=== PATIENT | female | born 1950 | race Caucasian/White ===

== ENCOUNTER 2020-09-30 05:47 | Inpatient (IN) ==
[2020-09-30] MEDS ORDERED: LACTATED RINGERS 1,000 ML IV SCH (06:00)
[2020-09-30] MEDS ORDERED: GABAPENTIN 400 MG CAPSULE PO ONE (06:22)
[2020-09-30] MEDS ORDERED: ACETAMINOPHEN 500 MG TABLET PO ONE (06:22)
[2020-09-30] MEDS ORDERED: FAMOTIDINE 20 MG TABLET PO ONE (06:22)
[2020-09-30] MEDS ORDERED: DIAZEPAM 5 MG TABLET PO ONE (06:22)
[2020-09-30] MEDS ORDERED: TISSUE ADHESIVE 1 EACH APPLICATOR TOP ONE (06:25)
[2020-09-30] MEDS ORDERED: INDOCYANINE GREEN 25 MG VIAL IV ONE (06:25)
[2020-09-30] MEDS ORDERED: cefOXitin 1,000 MG in SYRINGE 1 EACH IV ONE (06:30)
[2020-09-30] MEDS ORDERED: ALVIMOPAN 12 MG CAPSULE PO ONE (06:30)
[2020-09-30] MEDS ORDERED: MIDAZOLAM 2 MG/2 ML VIAL ONE (06:42)
[2020-09-30] MEDS ORDERED: fentaNYL 100 MCG/2 ML VIAL ONE (06:42)
[2020-09-30] MEDS ORDERED: LIDOCAINE 2% 5 ML VIAL ONE (06:43)
[2020-09-30] MEDS ORDERED: ROCURONIUM 50 MG/5 ML VIAL IV ONE (06:43)
[2020-09-30] MEDS ORDERED: propofoL 200 MG/20 ML VIAL IV ONE (06:43)
[2020-09-30] MEDS ORDERED: LIDOCAINE 1% 5 ML VIAL ONE (06:49)
[2020-09-30] MEDS ORDERED: DEXAMETHASONE 4 MG/1 ML VIAL ONE (06:49)
[2020-09-30] MEDS ORDERED: BUPIVACAINE MPF 0.25% 30 ML VIAL ONE (06:49)
[2020-09-30] MEDS ORDERED: ePHEDrine 50 MG/ML VIAL ONE (07:51)
[2020-09-30] MEDS ORDERED: ONDANSETRON 4 MG/2 ML VIAL ONE ×2 (09:49)
[2020-09-30] MEDS ORDERED: MORPHINE 4 MG/1 ML VIAL IV PRN (10:25)
[2020-09-30] MEDS ORDERED: ONDANSETRON 4 MG/2 ML VIAL IV PRN (10:25)
[2020-09-30] MEDS ORDERED: SEVOFLURANE 1 UNIT/15 MINUTE INH ONE (10:35)
[2020-09-30 12:29] LABS: Hematocrit 41.1 VOL% (35.7-47.0); Hemoglobin 13.6 GM/DL (12.0-16.0)
[2020-09-30] MEDS: DEXTROSE 5% LACTATED RINGERS 1,000 ML IV SCH ×2 (14:39→21:49)
[2020-09-30] MEDS: cefOXitin 2,000 MG in SYRINGE 1 EACH IV SCH ×2 (14:43→19:43)
[2020-09-30 18:25] LABS: Hematocrit 37.7 VOL% (35.7-47.0); Hemoglobin 12.7 GM/DL (12.0-16.0)
[2020-10-01] MEDS: cefOXitin 2,000 MG in SYRINGE 1 EACH IV SCH (01:27)
[2020-10-01] MEDS: ENOXAPARIN 40 MG/0.4 ML SYRINGE SUBCUT SCH (05:34)
[2020-10-01] MEDS: DEXTROSE 5% LACTATED RINGERS 1,000 ML IV SCH ×2 (05:38→13:15)
[2020-10-01 05:45] LABS: Basophils % 0.3 % (0.0-0.8); Hematocrit 34.1 VOL% (35.7-47.0); Hemoglobin 11.4 GM/DL (12.0-16.0); Immature Granulocytes % 0.3 %; Immature Granulocytes Absolute 0.02 #; Lymphocytes # 1.7 10*3/uL (1.4-4.0); Mean Corpuscular HGB Conc 33.4 GM/DL (32-36); Mean Corpuscular Volume 90.7 FL (87-102); Mean Platelet Volume 10.1 FL (9.6-12.0); Monocytes % 8.2 % (1.7-12.7); Neutrophils % 68.2 % (38.7-73.9); Platelet Count 209 T/CUMM (130-400); Red Blood Count 3.76 MC/CUMM (3.8-5.5); Red Cell Distribution Width 12.8 % (9.3-17.3); White Blood Count 7.4 T/CUMM (4-12)
[2020-10-01 05:49] LABS: Hematocrit 34.5 VOL% (35.7-47.0); Hemoglobin 11.5 GM/DL (12.0-16.0)
[2020-10-01 06:21] LABS: Calcium 8.6 MG/DL (8.5-10.1); Osmolality,Calculated 276.4 MOS/KG (273-304); Potassium 3.7 MMOL/L (3.5-5.1)
[2020-10-02] MEDS: ENOXAPARIN 40 MG/0.4 ML SYRINGE SUBCUT SCH (05:16)
[2020-10-03 04:10] LABS: Basophils % 0.9 % (0.0-0.8); Eosinophils # 0.2 10*3/uL (0.0-0.87); Eosinophils % 4.6 % (0.00-10.9); Hematocrit 37.9 VOL% (35.7-47.0); Hemoglobin 12.3 GM/DL (12.0-16.0); Immature Granulocytes % 0.2 %; Immature Granulocytes Absolute 0.01 #; Lymphocytes # 1.8 10*3/uL (1.4-4.0); Lymphocytes % 38.1 % (21.3-54.2); Mean Corpuscular HGB Conc 32.5 GM/DL (32-36); Mean Corpuscular Volume 91.3 FL (87-102); Mean Platelet Volume 9.6 FL (9.6-12.0); Monocytes % 7.8 % (1.7-12.7); Neutrophils % 48.4 % (38.7-73.9); Platelet Count 210 T/CUMM (130-400); Red Blood Count 4.15 MC/CUMM (3.8-5.5); Red Cell Distribution Width 12.6 % (9.3-17.3); White Blood Count 4.6 T/CUMM (4-12)
[2020-10-03 04:24] LABS: Calcium 8.9 MG/DL (8.5-10.1); Osmolality,Calculated 276.4 MOS/KG (273-304); Potassium 4.5 MMOL/L (3.5-5.1)
[2020-10-03] MEDS: ENOXAPARIN 40 MG/0.4 ML SYRINGE SUBCUT SCH (05:41)
[2020-10-04] MEDS: ENOXAPARIN 40 MG/0.4 ML SYRINGE SUBCUT SCH (05:53)
[2020-10-04 11:29] VITALS: BP 126/47
== END 2020-10-04 11:40 | disposition home or self-care (01) | DRG 330 ==
LOC: N.SDSINP 05:47 → N.OR 05:47 → N.SDSINP 05:50 → N.3E 11:22
PROVIDERS: ADMIT Surgery; ATTEND Surgery